=== PATIENT | male | born 1960 | race Two or more races ===

== ENCOUNTER 2018-12-29 08:16 | Day surgery (SDC) | payer MEDICARE ==
[2018-12-29] VITALS (11 sets, daily range): BP systolic 113–165; BP diastolic 69–97
[~2018-12-29] VITALS: Ht 177.8 cm; Wt 154.2 kg
[~2018-12-29 08:16] MED LIST: AMLODIPINE BESY10 MG ORAL; DIAZEPAM10 MG ORAL; FUROSEMIDE40 MG ORAL; METOPROLOL TART50 M1 ORAL; NORCO 7.5/3251 EA ORAL; TAMSULOSIN HCL0.4 MG ORAL; ceFAZolin 1gm IVPB IVPB ONE; celeBREX 200mg Cap **SURGERY PATIENTS ONLY ORAL ONE; oxyCONTIN 20mg tab ORAL ONE
--- NOTE | 2018-12-29 08:44 | Pre-Procedure Note/Attestation ---
Pre-Procedure Note/Attestation Complete Prior to Procedure Planned Procedure: right Procedure Narrative: knee MPLF reconstruction Indications for Procedure Pre-Operative Diagnosis: right knee dislocation Attestation I attest that I discussed the nature of the procedure; its benefits; risks and complications; and alternatives (and the risks and benefits of such alternatives ), prior to the procedure, with the patient (or the patient's legal customer field representative). I attest that, if there was a reasonable possibility of needing a blood transfusion, the patient (or the patient's legal customer field representative) was given the [facility] standardized written summary, pursuant to the Christian Zahra Blood Safety Act ([place] Health and Safety Code # 1645, as amended). I attest that I re-evaluated the patient just prior to the surgery and that there has been no change in the patient's H&P, except as documented below: Rishabh Corona MD Dec 29, 2018 08:44
--- NOTE | 2018-12-29 08:44 | Operative Note - PDOC ---
Operative Note Operative Note Pre-op Diagnosis: right knee dislocation Procedure: see op report Post-op Diagnosis: same as pre-op plus Operative Findings: consistent w/pre-op dx studies Anesthesia: regional Specimen: none Complications: none Condition: stable Estimated Blood Loss: none Implant(s) used?: Yes Rishabh Corona MD Dec 29, 2018 08:44
[2018-12-29] MEDS ORDERED: HYDROmorphone 1mg/ml Carpuject SUBQ PRN (08:45)
[2018-12-29] MEDS ORDERED: Tylenol #3 tab (300mg/30mg) ORAL PRN (08:45)
[2018-12-29] MEDS ORDERED: Norco 5mg/325mg tab ORAL PRN (08:45)
[2018-12-29] MEDS ORDERED: D5 1/2NS 1,000 ML IV SCH (08:45)
[2018-12-29] MEDS ORDERED: oxyCONTIN 20mg tab ORAL ONE (09:28)
[2018-12-29] MEDS ORDERED: celeBREX 200mg Cap **SURGERY PATIENTS ONLY ORAL ONE (09:28)
[2018-12-29] MEDS ORDERED: fentaNYL 100 mcg/2 mL IV ONE (10:44)
[2018-12-29] MEDS ORDERED: Midazolam 2mg/2ml Inj ONE ×2 (10:44→11:45)
[2018-12-29] MEDS ORDERED: Bupivacaine 0.25% Inj 30ml INJ ONE ×3 (10:48→12:39)
[2018-12-29] MEDS ORDERED: Succinylcholine 20mg/ml 10ml vial ONE (10:49)
[2018-12-29] MEDS ORDERED: Glycopyrrolate 0.2mg/ml 1ml Vial ONE (11:00)
[2018-12-29] MEDS ORDERED: LR 1000ml ONE (11:00)
[2018-12-29] MEDS ORDERED: Sterile Water Irrig 1000ml IRRIG ONE (11:00)
[2018-12-29] MEDS ORDERED: Metoclopramide 10mg/2ml Inj ONE (11:00)
[2018-12-29] MEDS ORDERED: Neostigmine 1mg/ml 10ml Inj ONE (11:00)
[2018-12-29] MEDS ORDERED: NS Irrig 1000ml ONE (11:00)
[2018-12-29] MEDS ORDERED: Morphine Sulfate PF 0 ML ONE (11:12)
[2018-12-29] MEDS ORDERED: EPINEPHrine 1mg/1ml Amp ONE (11:12)
[2018-12-29] MEDS ORDERED: Kenalog-40 1ml Vial ONE (11:12)
[2018-12-29] MEDS ORDERED: Lidocaine 1% 10mg/ml/Epi 0.005mg/ml 30ml vial INJ ONE (11:12)
[2018-12-29] MEDS ORDERED: Ketorolac 30mg Inj ONE (11:12)
[2018-12-29] MEDS ORDERED: DiphenhydrAMINE 50mg/ml Inj IVP PRN (11:45)
[2018-12-29] MEDS ORDERED: Hydromorphone 0.5mg/0.5ml inj IVP PRN (11:45)
[2018-12-29] MEDS ORDERED: Metoclopramide 10mg/2ml Inj IVP PRN (11:45)
[2018-12-29] MEDS ORDERED: fentaNYL 100 mcg/2 mL IV PRN (11:45)
[2018-12-29] MEDS ORDERED: NS Irrig 4000ml IRRIG ONE (11:50)
[2018-12-29] MEDS ORDERED: Acetaminophen (Non formulary) 100 ML IV SCH (12:00)
[2018-12-29] MEDS ORDERED: Albuterol 90mcg Inhaler 8gm INH ONE (12:50)
[2018-12-29] MEDS ORDERED: Propofol 200mg/20ml IV ONE (13:09)
--- NOTE | 2018-12-29 13:15 | Diagnostic Imaging Report ---
Indication: Intraoperative imaging. Patellar tendon graft surgery 3 intraoperative views of the right knee were obtained. Findings: Instrumentation noted about the right knee. A total knee prosthesis is noted. IMPRESSION: Intraoperative imaging
--- NOTE | 2018-12-29 15:17 | Anethesia Preoperative Eval ---
Anesthesia Pre-op PMH/ROS General Date of Evaluation: Dec 29, 2018 Time of Evaluation: 10:40 Anesthesiologist: patricia ASA Score: ASA 3 Mallampati Score Class I : Soft palate, uvula, fauces, pillars visible Class II: Soft palate, uvula, fauces visible Class III: Soft palate, base of uvula visible Class IV: Only hard plate visible Mallampati Classification: Class III Surgeon: courtney Diagnosis: knee pain Surgical Procedure: right knee arthroscopy with medial pateelo femoral lig reconstruction Anesthesia History: none Family History: no anesthesia problems Allergies: Coded Allergies: No Known Allergies (Unverified , 12/28/18) Medications: see eMAR Patient NPO?: Yes NPO Date: Dec 29, 2018 NPO Time: 00:01 Past Medical History Cardiovascular: Reports: HTN Pulmonary: Reports: YAO; Denies: asthma, COPD, other Gastrointestinal/Genitourinary: Reports: GERD Neurologic/Psychiatric: Denies: dementia, CVA, depression/anxiety, TIA, other Endocrine: Denies: DM, hypothyroidism, steroids, other HEENT: Denies: cataract (L), cataract (R), glaucoma, [employer] AFFILIATED (L), THREE AFFILIATED (R), other Hematology/Immune: Denies: anemia, DVT, bleeding disorder, other Musculoskeletal/Integumentary: Reports: OA Other: obesity PSxH Narrative: knee replacement 4 years ago Anesthesia Pre-op Phys. Exam Physician Exam Last Vital Signs Date Time Temp Pulse Resp B/P (MAP) Pulse Ox O2 Delivery O2 Flow Rate FiO2 12/29/18 13:55 97.9 67 15 157/87 96 Room Air 12/29/18 13:30 3 Constitutional: NAD Neurologic: CN 2-12 intact Cardiovascular: RRR Respiratory: CTA Gastrointestinal: S/NT/ND Airway Exam Mallampati Classification 3 Mallampati Score: Class III MO: full Neck: thick TMD: 1fb ROM: full Dentures: no upper, no lower Kellen Galeas CRNA Dec 29, 2018 15:17
--- NOTE | 2018-12-29 15:18 | Immediate Post-Op Evaluation ---
Immediate Post-Op Evalulation Immediate Post-Op Evalulation Procedure: right knee arthroscopy Date of Evaluation: Dec 29, 2018 Time of Evaluation: 13:07 IV Fluids: 800 Blood Pressure Systolic: 130 Blood Pressure Diastolic: 80 Pulse Rate: 70 Respiratory Rate: 14 O2 Sat by Pulse Oximetry: 97 Temperature (Fahrenheit): 97.7 Pain Score (1-10): 0 Nausea: No Vomiting: No Complications none Patient Status: awake, reacts, patent Hydration Status: adequate Drug: ancef Given Within 1 Hr of Incision: Yes Time Given: 11:00 Kellen Galeas CRNA Dec 29, 2018 15:18
--- NOTE | 2018-12-29 15:19 | 48 Hour Post Anesthesia Eval ---
Post Anesthesia Evaluation Procedure: right knee arthroscopy Date of Evaluation: Dec 29, 2018 Time of Evaluation: 15:19 Blood Pressure Systolic: 150 0: 87 Pulse Rate: 64 Respiratory Rate: 14 Temperature (Fahrenheit): 97.4 O2 Sat by Pulse Oximetry: 96 Airway: patent Nausea: No Vomiting: No Hydration Status: adequate Cardiopulmonary Status: stable Mental Status/LOC: patient returned to baseline Follow-up Care/Observations: na Post-Anesthesia Complications: none Kellen Galeas CRNA Dec 29, 2018 15:19
--- NOTE | 2018-12-29 19:00 | Operative Note - Dictated ---
DATE OF OPERATION: 12/29/2018 PREOPERATIVE DIAGNOSES: 1. Status post right total knee arthroplasty. 2. Right knee patellar dislocation. POSTOPERATIVE DIAGNOSES: 1. Status post right total knee arthroplasty. 2. Right knee patellar dislocation. PROCEDURE: 1. Right knee diagnostic arthroscopy. 2. Right knee open medial patellofemoral ligament reconstruction. 3. Open VMO advancement. SURGEON: Rishabh Corona M.D. ANESTHESIA: Femoral with general. INDICATION FOR PROCEDURE: The patient is a pleasant gentleman who had a total knee arthroplasty. He noticed subluxation of the knee and continued pain therefore elected to undergo right knee MPFL reconstruction. Risks, limitations, expectations, complication of procedure were discussed in detail. All questions addressed. DESCRIPTION OF PROCEDURE: After informed consent was obtained, the patient was brought to the operating room and placed under general anesthesia. Right leg was then prepped and draped in a sterile manner. At this point, the patella was evaluated and then grossly unstable. The inferolateral stab incision was then made. Trocar was introduced into the knee joint. The patella did not seem to be articulating at the trochlear groove of the femoral component. There is attenuation of the medial gutter. The tibial insert seem to be intact. There was no significant soft tissue debridement. At this point, a medial starting point for Blumensaat's line identified. The skin was incised. Camera placed through the medial femoral condyle. Through the lateral femoral cortex once adequate position and confirming the lateral imaging 40 mm bone tunnel was prepared. The tibialis anterior allograft which was prepared on the back table was then passed through to approximately 30 mm into the tunnel. Once that was completed, the incision was made along the medial patellar facet. Blunt dissection along the capsule was performed with care to separate the VMO. The tibialis anterior allograft was then passed just above the capsule and secured through two juggernauts in the medial patellar facet. The patella was nice and secure. At this point, the VMO was then advanced along the patellar tendon over the MPFL for further stabilization. At this point, the wound was copiously irrigated. The skin was closed with #1 Vicryl suture, 2-0 Vicryl suture, and 3-0 Monocryl sutures. Steri-Strips and a sterile dressing were applied. The patient was awoken and taken to recovery room with stable vital signs. ESTIMATED BLOOD LOSS: None. COMPLICATIONS: None. SPECIMENS: Include tibialis anterior allograft, a Biomet suture system. Rishabh Corona M.D. DR: Khalif JOB#: [id number] CC: MANSI
== END 2018-12-29 15:25 | disposition home or self-care (01) ==
LOC: SUR 08:16
DX: S83.004A Unspecified dislocation of right patella, initial encounter (principal); Z96.651 Presence of right artificial knee joint; I10 Essential (primary) hypertension; E66.9 Obesity, unspecified; G47.33 Obstructive sleep apnea (adult) (pediatric); K21.9 Gastro-esophageal reflux disease without esophagitis; M19.90 Unspecified osteoarthritis, unspecified site
CPT/HCPCS: 27428; 29870; 73560; 76000; J0330; J2250; J2405; J2704; J2710; J2765; J3010; J3490; 94003; 94150; C1713